=== PATIENT | male | born 1980 | race Hispanic/Latino ===

== ENCOUNTER 2018-07-16 18:16 | Emergency (ER) | payer SELFPAY ==
[~2018-07-16] VITALS: Ht 175.3 cm; Wt 131.5 kg
--- OUTSIDE RECORDS SUMMARY | 2018-07-16 18:19 | XMS REPORT | Clinical Summary ---
Author Author [place] [facility] [place] [facility] Address Unknown Phone Unavailable Care Team Providers Care Business Unit Manager Name Role Phone [facility] PCP Allergies No Known Allergies Medications End Date Status Medication Sig Dispensed Refills Start Date Active ciprofloxacin (CIPRO) 500 Take 500 mg 0 MG tablet by mouth 2 (two) times a day. For 10 days, starting 07/18/17 Active triamterene-hydrochloroth Take 1 tablet 0 iazid (MAXZIDE-25) by mouth 7 37.5-25 mg per tablet every morning. 07/20/2017 Discontinued acetaminophen-codeine Take 1 tablet 0 (TYLENOL WITH CODEINE #3) by mouth 6 300-30 mg per tablet every 4 (four) hours as needed. 07/20/2017 Discontinued blood pressure monitor Please check 1 each 1 (BLOOD PRESSURE KIT) blood 7 kitIndications: Essential pressures hypertension daily and keep a written log. 08/04/2017 sulfamethoxazole-trimetho Take 1 tablet 28 tablet 0 prim (BACTRIM DS) 800-160 by mouth 8 mg per tabletIndications: every 12 Cellulitis of scrotum, (twelve) Abscess of scrotum, hours for 14 Epididymitis, right, days. Scrotal abscess, Borderline diabetes Active Problems Problem Noted Date Epididymitis, right 07/21/2017 Scrotal abscess 07/21/2017 Borderline diabetes 07/21/2017 Leukocytosis 07/21/2017 Cellulitis of scrotum 07/20/2017 Encounters Care Team Description Date Type Specialty Doris Thompson MD Scrotal abscess (Primary Dx) 07/27/2017 Office Visit Urology Hank Teran MD Samuel, Leena L., MD Cellulitis of scrotum (Primary Dx); Abscess of scrotum; Epididymitis, right; Scrotal abscess; Borderline diabetes 07/20/2017 Emergency Emergency Medicine - 07/21/2017 after 07/15/2017 Family History Medical History Relation Name Comments No Known Problems Father Diabetes Maternal Uncle Stroke Maternal Uncle Diabetes Mother Hypertension Mother Other Paternal Fluid in his heart Grandfather Diabetes Paternal Grandmother Relation Name Status Comments Father Maternal Uncle Alive Mother Alive Paternal Grandfather Alive Paternal Grandmother Social History Date Tobacco Use Types Packs/Day Years Used Former Smoker 0.1 2 Smokeless Tobacco: Never Used Alcohol Use Drinks/Week oz/Week Comments Yes socially Sex Assigned at Date Recorded Not on file Industry Job Start Date Occupation Not on file Not on file Not on file Travel End Travel History Travel Start No recent travel history available. Last Filed Vital Signs Time Taken Vital Sign Reading 07/21/2017 11:30 AM [employer] Blood Pressure 120/74 07/21/2017 11:30 AM [employer] RE[employer] Pulse 72 07/21/2017 11:30 AM [employer] REPAIR[employer] Temperature 36.5 C (97.7 F) 07/21/2017 11:30 AM [employer] REPA[employer]ER Respiratory Rate 18 07/21/2017 11:30 AM [employer] REPA[employer]ER Oxygen Saturation 96% - Inhaled Oxygen - Concentration - Weight - 07/20/2017 1:55 PM [employer] REPAIR[employer] Height 175.3 cm (5' 9") - Body Mass Index - Plan of Treatment Health Maintenance Due Date Last Done Comments INFLUENZA VACCINE 02/08/2018 Procedures Comments Procedure Name Priority Date/Time Associated Diagnosis POC URINALYSIS DIPSTICK Routine 07/27/2017 Scrotal abscess 11:15 AM [employer] REPA[employer]ER CHLAMYDIA BY PROBETEC Routine 07/21/2017 9:57 AM [employer] REPAIRER GC BY PROBETEC Routine 07/21/2017 9:57 AM E[employer]IC [employer]YING [employer] REPAIRER ZZESTIMATED GFR Routine 07/21/2017 3:25 AM [employer] REPAIRER HEMOGLOBIN A1C Routine 07/21/2017 3:25 AM [employer] REPAIRER COMPREHENSIVE METABOLIC Routine 07/21/2017 PANEL 3:25 AM [employer] REPA[employer] SYPHILIS TREPONEMAL IGG Routine 07/21/2017 3:25 AM [employer] REPAIRER HIV 1, 2 ANTIBODY Routine 07/21/2017 3:25 AM [employer] REPAIRER LACTIC ACID LEVEL, SEPSIS Timed 07/20/2017 - NOW AND REPEAT 2X EVERY 5:02 PM [employer] REPAIRER 3 HOURS URINALYSIS SCREEN AND STAT 07/20/2017 MICROSCOPY, WITH REFLEX 4:45 PM [employer] REPAIRER TO CULTURE URINE CULTURE STAT 07/20/2017 4:45 PM [employer] REPAIRER ZZESTIMATED GFR STAT 07/20/2017 4:40 PM [employer]YING [employer] REPAIRER LACTIC ACID LEVEL, SEPSIS STAT 07/20/2017 - NOW AND REPEAT 2X EVERY 4:40 PM [employer] REPAIRER 3 HOURS CREATINE KINASE, TOTAL STAT 07/20/2017 (CPK) 4:40 PM [employer]YING [employer] REPAIRER COMPREHENSIVE METABOLIC STAT 07/20/2017 PANEL 4:40 PM [employer]YING [employer] REPAIRER MAGNESIUM LEVEL STAT 07/20/2017 4:40 PM [employer] REPAIRER PARTIAL THROMBOPLASTIN STAT 07/20/2017 TIME (PTT) 4:40 PM E[employer]IC [employer]YING [employer] REPAIRER PROTHROMBIN TIME WITH INR STAT 07/20/2017 4:40 PM [employer] REPAIRER HC COMPLETE BLD COUNT STAT 07/20/2017 W/AUTO DIFF 4:40 PM E[employer]YING [employer] REPAIRER BLOOD CULTURE, AEROBIC & Routine 07/20/2017 ANAEROBIC 4:36 PM [employer]YING [employer] REPAIRER US SCROTAL STAT 07/20/2017 3:05 PM E[employer]IC [employer]YING [employer] REPAIRER after 07/15/2017 Results * POC urinalysis dipstick (07/27/2017 11:15 AM E[employer]YING [employer] REPAIRER) Color urine, POC Yellow Clarity urine, POC Clear Glucose urine, POC Negative Negative Bilirubin urine, POC Negative Negative Ketones urine, POC Negative Negative Specific gravity urine, 1.025 1.005 - 1.030 POC Blood urine, POC Trace (A) Negative pH urine, POC 5.5 5.0, 5.5, 6.0, 6.5, 7.0, 7.5, 8.0, 8.5 Protein urine, POC Negative Negative Urobilinogen urine, POC <2.0 <2.0 Nitrite urine, POC Negative Negative Leukocyte esterase urine, Negative Negative POC Specimen Urine * GC By Probe[employer] (07/21/2017 9:57 AM ELECTRIC [employer]YING [employer] REPAIRER) [facility] DEPARTMENT OF gonorrhoeae. PATHOLOGY AND Comment: GENOMIC MEDICINE Specimen Information Specimen Source: Urine Specimen Site: Midstream Specimen Urine - Midstream Performing Organization Address [facility] Phone Number [facility] [place] [address] PATHOLOGY AND GENOMIC MEDICINE * Chlamydia by ProbeTe (07/21/2017 9:57 AM ELECT[employer]IC [employer]YING [employer] REPAIRER) [facility]lamydia, [facility] DEPARTMENT OF trachomatis. PATHOLOGY AND Comment: GENOMIC MEDICINE Specimen Information Specimen Source: Urine Specimen Site: Midstream Specimen Urine - Midstream Performing Organization Address [facility] [place] [address] PATHOLOGY AND GENOMIC MEDICINE * Syphilis treponemal IgG (07/21/2017 3:25 AM ELECT[employer]IC [employer]YING [employer] REPAIRER) Syphilis treponemal IgG Non-reactiveComment: Non-reactive [facility] DEPARTMENT OF Non-reactive: No serological PATHOLOGY AND evidence of Syphilis infection [facility] Specimen Serum Performing Organization Address [facility] [place] [address] PATHOLOGY AND GENOMIC MEDICINE * Estimated GFR (07/21/2017 3:25 AM ELECT[employer]IC [employer]YING [employer] REPAIRER) Only the most recent of 2 results within the time period is included. GFR Non Af Amer >90 mL/min/1.73 m2 [facility] DEPARTMENT OF PATHOLOGY AND GENOMIC MEDICINE GFR Af Amer >90 mL/min/1.73 m2 [facility] DEPARTMENT OF Comment: PATHOLOGY AND Chronic kidney disease: <60 GENOMIC MEDICINE mL/min/1.73m2 Kidney failure: <15 mL/min/1.73m2 The estimated GFR is calculated from the IDMS-traceable Modification of Diet in Renal Disease Equation. The accuracy of the calculation is poor when the creatinine is normal. Calculated values >90 mL/min/1.73m2 are not reported. This equation has not been validated in children (<18 years), women, the elderly (>70 years), or ethnic groups other than Caucasians and Americans. Specimen Plasma specimen Performing Organization Address City/[facility]/[place] [address] PATHOLOGY AND GENOMIC MEDICINE * HIV 1, 2 antibody (07/21/2017 3:25 AM E[employer]IC [employer]YING [employer] REPAIRER) HIV 1, 2 antibody Non-reactive Non-reactive [facility] DEPARTMENT OF Comment: PATHOLOGY AND Starting from October 07 2015, GENOMIC MEDICINE 4th generation HIV screening and confirmation assays are in use at [facility], consistent with the CDC-recommended algorithm. The screening test detects antibodies to HIV-1, HIV-2 and the p24 antigen. Positive screening results will be automatically reflexed to a HIV-1/HIV-2 differentiation assay. Indeterminant HIV-1 results will be further automatically reflexed to a nucleic acid test for detection of acute infection. Western blot will no longer be performed as a confirmation test. For a quick reference guide on the testing algorithm, please refer to: http://stacks.cdc.gov/view/cdc /94377. Specimen Blood Performing Organization Address [facility] [place] [address] PATHOLOGY AND GENOMIC MEDICINE * Hemoglobin A1c (07/21/2017 3:25 AM E[employer]IC [employer]YING [employer] REPAIRER) Hemoglobin A1C 5.7 (H) 4.0 - 5.6 % [facility] DEPARTMENT OF Comment: PATHOLOGY AND HbA1c cutoffs for diagnosing GENOMIC MEDICINE diabetes: 4.0% - 5.6%=normal 5.7% - 6.4%=increased risk for diabetes (prediabetes) >=6.5%=diabetes Goals for glycemic control (ADA 2016) < 7.0%Target for non adults with diabetes. More or less stringent targets may be appropriate for individual patients. <7.5% Target for Children and adolescents with type 1 diabetes. Specimen Blood Performing Organization Address [facility]/[place] [address] PATHOLOGY AND GENOMIC MEDICINE * Comprehensive metabolic panel (07/21/2017 3:25 AM ELECT[employer]IC [employer]YING [employer] REPAIRER) Only the most recent of 2 results within the time period is included. Sodium 140 135 - 148 mEq/L [facility] DEPARTMENT OF PATHOLOGY AND GENOMIC MEDICINE Potassium 3.9 3.5 - 5.0 mEq/L [facility] DEPARTMENT OF PATHOLOGY AND GENOMIC MEDICINE Chloride 103 98 - 112 mEq/L [facility] DEPARTMENT OF PATHOLOGY AND GENOMIC MEDICINE CO2 26 24 - 31 mEq/L [facility] DEPARTMENT OF PATHOLOGY AND GENOMIC MEDICINE Anion gap 11 7 - 15 mEq/L [facility] DEPARTMENT OF Comment: PATHOLOGY AND Starting from October GENOMIC MEDICINE , anion gap calculation no longer incorporates potassium. Please note the change. BUN 11 6 - 20 mg/dL [facility] DEPARTMENT OF PATHOLOGY AND GENOMIC MEDICINE Creatinine 0.9 0.7 - 1.2 mg/dL [facility] DEPARTMENT OF PATHOLOGY AND GENOMIC MEDICINE Glucose 92 65 - 99 mg/dL [facility] DEPARTMENT OF PATHOLOGY AND GENOMIC MEDICINE Calcium 8.3 8.3 - 10.2 mg/dL [facility] DEPARTMENT OF PATHOLOGY AND GENOMIC MEDICINE Protein 7.2 6.3 - 8.3 g/dL [facility] DEPARTMENT OF Comment: PATHOLOGY AND GENOMIC MEDICINE 4.6-7.0 g/dL 1 week 4.4-7.6 g/dL 7 months-1year 5.1-7.3 g/dL 1-2 years5.6-7 .5 g/dL >3 years6.0-8 .0 g/dL 18-150 6.3-8.3 g/dL Albumin 2.7 (L) 3.5 - 5.0 g/dL [facility] DEPARTMENT OF PATHOLOGY AND GENOMIC MEDICINE A/G ratio 0.6 (L) 0.7 - 3.8 [facility] DEPARTMENT OF PATHOLOGY AND GENOMIC MEDICINE Alkaline phosphatase 92 40 - 129 U/L [facility] DEPARTMENT OF PATHOLOGY AND GENOMIC MEDICINE AST 18 10 - 50 U/L [facility] DEPARTMENT OF PATHOLOGY AND GENOMIC MEDICINE ALT 19 5 - 50 U/L [facility] DEPARTMENT OF PATHOLOGY AND GENOMIC MEDICINE Total bilirubin 0.4 0.0 - 1.2 mg/dL [facility] DEPARTMENT OF PATHOLOGY AND GENOMIC MEDICINE Specimen Plasma specimen Performing Organization Address City/[facility] Phone Number [address] [address] PATHOLOGY AND [employer] MEDICINE * Lactic acid level, SEPSIS - Now and repeat 2x every 3 hours (07/20/2017 5:02 PM E[employer]YING [employer] REPAIRER) Only the most recent of 2 results within the time period is included. Lactic acid 1.3 0.5 - 2.2 mmol/L [facility] DEPARTMENT OF PATHOLOGY AND GENOMIC MEDICINE Specimen Blood Performing Organization Address City/[facility] Phone Number [address] [address] PATHOLOGY AND GENOMIC MEDICINE * Urinalysis screen and microscopy, with reflex to culture (07/20/2017 4:45 PM ELECT[employer]IC [employer]YING [employer] REPAIRER) Specimen site Clean catch [facility] DEPARTMENT OF PATHOLOGY AND GENOMIC MEDICINE Color, UA Yellow [facility] DEPARTMENT OF PATHOLOGY AND GENOMIC MEDICINE Appearance, UA Clear [facility] DEPARTMENT OF PATHOLOGY AND GENOMIC MEDICINE Specific gravity, UA 1.027 1.001 - 1.035 [facility] DEPARTMENT OF PATHOLOGY AND GENOMIC MEDICINE pH, UA 5.0 5.0 - 8.5 [facility] DEPARTMENT OF PATHOLOGY AND GENOMIC MEDICINE Protein, UA Negative Negative [facility] DEPARTMENT OF PATHOLOGY AND GENOMIC MEDICINE Glucose, UA Negative Negative [facility] DEPARTMENT OF PATHOLOGY AND GENOMIC MEDICINE Ketones, UA Negative Negative [facility] DEPARTMENT OF PATHOLOGY AND GENOMIC MEDICINE Bilirubin, UA Negative Negative [facility] DEPARTMENT OF PATHOLOGY AND GENOMIC MEDICINE Blood, UA Negative Negative [facility] DEPARTMENT OF PATHOLOGY AND GENOMIC MEDICINE Nitrite, UA Negative Negative [facility] DEPARTMENT OF PATHOLOGY AND GENOMIC MEDICINE Urobilinogen, UA 4.0 (A) <2.0 [facility] DEPARTMENT OF PATHOLOGY AND GENOMIC MEDICINE Leukocyte esterase, UA Negative Negative [facility] DEPARTMENT OF PATHOLOGY AND GENOMIC MEDICINE Epithelial cells, UA 1 /HPF [facility] DEPARTMENT OF PATHOLOGY AND GENOMIC MEDICINE WBC, UA 2 (H) 0 - 1 /HPF [facility] DEPARTMENT OF PATHOLOGY AND GENOMIC MEDICINE RBC, UA 2 (H) 0 - 1 /HPF [facility] DEPARTMENT OF PATHOLOGY AND GENOMIC MEDICINE Bacteria, UA Few None seen [facility] DEPARTMENT OF PATHOLOGY AND GENOMIC MEDICINE Yeast, UA None seen [facility] DEPARTMENT OF PATHOLOGY AND GENOMIC MEDICINE Yeast with pseudohyphae, None seen [facility] DEPARTMENT OF PATHOLOGY AND GENOMIC MEDICINE Hyaline casts, UA 4 /LPF [facility] DEPARTMENT OF PATHOLOGY AND GENOMIC MEDICINE Specimen Urine Performing Organization Address City/[facility]/[place] [address] PATHOLOGY AND GENOMIC MEDICINE * Urine culture (07/20/2017 4:45 PM ELECTRIC [employer]YING [employer] REPAIRER) Urine culture SEE COMMENTComment: [facility] DEPARTMENT OF Bacteriuria screen negative. PATHOLOGY AND GENOMIC MEDICINE Performing Organization Address City/[facility] Phone Number [place] [phone] PATHOLOGY AND GENOMIC MEDICINE * Partial thromboplastin time, activated (07/20/2017 4:40 PM E[employer]YING [employer] REPAIRER) PTT 33.7 23.0 - 36.0 sec [facility] DEPARTMENT OF Comment: PATHOLOGY AND PTT therapeutic range for GENOMIC MEDICINE unfractionated heparin is 61.0-112.0 seconds which corresponds to Anti-Xa 0.3-0.7 U/ml. Specimen Blood Performing Organization Address City/[facility]/[place] [address] PATHOLOGY AND GENOMIC MEDICINE * Prothrombin time with INR (07/20/2017 4:40 PM ELECT[employer]YING [employer] REPAIRER) Prothrombin time 14.9 12.0 - 15.0 sec [facility] DEPARTMENT OF PATHOLOGY AND GENOMIC MEDICINE INR 1.2 [facility] DEPARTMENT OF Comment: PATHOLOGY AND The International Normalized [facility] Ratio (INR) is a therapeutic monitoring tool for patients who are stable on oral anticoagulant therapy. An INR of 2.0-3.0 is suggested for deep vein thrombosis/pulmonary embolism. Specimen Blood Performing Organization Address [facility] Phone Number [address] [address] PATHOLOGY AND [employer] MEDICINE * CBC with platelet and differential (07/20/2017 4:40 PM ELECT[employer]IC [employer]YING [employer] REPAIRER) WBC 12.85 (H) 4.50 - 11.00 k/uL [facility] DEPARTMENT OF PATHOLOGY AND GENOMIC MEDICINE RBC 5.26 4.40 - 6.00 m/uL [facility] DEPARTMENT OF PATHOLOGY AND GENOMIC MEDICINE HGB 14.4 14.0 - 18.0 g/dL [facility] DEPARTMENT OF PATHOLOGY AND GENOMIC MEDICINE HCT 44.4 41.0 - 51.0 % [facility] DEPARTMENT OF PATHOLOGY AND GENOMIC MEDICINE MCV 84.4 82.0 - 100.0 fL [facility] DEPARTMENT OF PATHOLOGY AND GENOMIC MEDICINE MCH 27.4 27.0 - 34.0 pg [facility] DEPARTMENT OF PATHOLOGY AND GENOMIC MEDICINE MCHC 32.4 31.0 - 37.0 g/dL [facility] DEPARTMENT OF PATHOLOGY AND GENOMIC MEDICINE RDW - SD 40.4 37.0 - 55.0 fL [facility] DEPARTMENT OF PATHOLOGY AND GENOMIC MEDICINE MPV 11.2 8.8 - 13.2 fL [facility] DEPARTMENT OF PATHOLOGY AND GENOMIC MEDICINE Platelet count 236 150 - 400 k/uL [facility] DEPARTMENT OF PATHOLOGY AND GENOMIC MEDICINE Nucleated RBC 0.00 /100 WBC [facility] DEPARTMENT OF PATHOLOGY AND GENOMIC MEDICINE Neutrophils 80.2 (H) 39.0 - 69.0 % [facility] DEPARTMENT OF PATHOLOGY AND GENOMIC MEDICINE Lymphocytes 12.4 (L) 25.0 - 45.0 % [facility] DEPARTMENT OF PATHOLOGY AND GENOMIC MEDICINE Monocytes 4.3 0.0 - 10.0 % [facility] DEPARTMENT OF PATHOLOGY AND GENOMIC MEDICINE Eosinophils 1.7 0.0 - 5.0 % [facility] DEPARTMENT OF PATHOLOGY AND GENOMIC MEDICINE Basophils 0.4 0.0 - 1.0 % [facility] DEPARTMENT OF PATHOLOGY AND GENOMIC MEDICINE Immature granulocytes 1.0Comment: "Immature 0.0 - 1.0 % [facility] DEPARTMENT OF granulocytes" (promyelocytes, PATHOLOGY AND myelocytes, metamyelocytes) GENOMIC MEDICINE Specimen Blood Performing Organization Address City/[facility] Phone Number [facility] [place] [address] PATHOLOGY AND GENOMIC MEDICINE * Magnesium level (07/20/2017 4:40 PM ELECTRIC [employer]YING [employer] REPAIRER) Magnesium 2.1 1.6 - 2.6 mg/dL [facility] DEPARTMENT OF PATHOLOGY AND GENOMIC MEDICINE Specimen Plasma specimen Performing Organization Address [facility] Phone Number [facility] [place] [address] PATHOLOGY AND GENOMIC MEDICINE * Creatine kinase, total (CPK) (07/20/2017 4:40 PM ELECTRIC [employer]YING [employer] REPAIRER) Creatine kinase 202 39 - 308 U/L [facility] DEPARTMENT OF PATHOLOGY AND GENOMIC MEDICINE Specimen Plasma specimen Performing Organization Address [facility] Phone Number [facility] [place] [address] PATHOLOGY AND GENOMIC MEDICINE * Blood culture, aerobic & anaerobic (07/20/2017 4:36 PM ELECTRIC [employer]YING [employer] REPAIRER) Blood culture isolate No growth after 5 days of [facility] DEPARTMENT OF incubation. PATHOLOGY AND Comment: GENOMIC MEDICINE Specimen Information Specimen Source: Blood Specimen Site: Antecubital, left Specimen Blood - Antecubital, left Performing Organization Address City/[facility] Phone Number [facility] [place] [address] PATHOLOGY AND GENOMIC MEDICINE * US Scrotal (07/20/2017 3:05 PM ELECTRIC [employer]YING [employer] REPAIRER) Narrative Performed At EXAMINATION:US SCROTAL [facility] CLINICAL HISTORY:testicular swelling COMPARISON:None. TECHNIQUE:Sonographic evaluation of the scrotum. Real-time B mode grayscale, Doppler spectral analysis and Doppler color flow imaging was used to assess testicular vasculature. IMPRESSION: Diffuse scrotal wall edema, slightly more pronounced on the left, where there is an intrascrotal wall complex fluid collection measuring 5.4 x 2.0 x 5.0 cm, indicative of a scrotal wall abscess. Another scrotal wall abscess on the left measuring 4.7 cm in long axis. Upper normal reactive left inguinal lymph node. Trace reactive simple appearing hydroceles bilaterally. No varicocele on either side. Right epididymis heterogeneous in echotexture, enlarged, and slightly hyperemic, indicating mild or subacute epididymitis. The left epididymis is well-maintained. Testicles measure 4.0 x 2.5 x 2.3 cm on the right and 3.7 x 2.5 x 3.3 cm on the left. Parenchyma is homogeneous in echotexture and there is perfusion bilaterally with no evidence of orchitis, torsion, or intratesticular abscess. SUMMARY: 1.Scrotal wall cellulitis, and a couple of abscesses in the left hemiscrotal wall. 2.No pyocele or intratesticular abscess. 3.Mild right epididymitis. [facility]-[id number] Procedure Note Hm Interface, Radiology Results Incoming - 07/20/2017 3:52 PM ELECTRIC [employer]YING [employer] REPAIRER EXAMINATION: US SCROTAL CLINICAL HISTORY: testicular swelling COMPARISON: None. TECHNIQUE: Sonographic evaluation of the scrotum. Real-time B mode grayscale, Doppler spectral analysis and Doppler color flow imaging was used to assess testicular vasculature. IMPRESSION: Diffuse scrotal wall edema, slightly more pronounced on the left, where there is an intrascrotal wall complex fluid collection measuring 5.4 x 2.0 x 5.0 cm, indicative of a scrotal wall abscess. Another scrotal wall abscess on the left measuring 4.7 cm in long axis. Upper normal reactive left inguinal lymph node. Trace reactive simple appearing hydroceles bilaterally. No varicocele on either side. Right epididymis heterogeneous in echotexture, enlarged, and slightly hyperemic, indicating mild or subacute epididymitis. The left epididymis is well-maintained. Testicles measure 4.0 x 2.5 x 2.3 cm on the right and 3.7 x 2.5 x 3.3 cm on the left. Parenchyma is homogeneous in echotexture and there is perfusion bilaterally with no evidence of orchitis, torsion, or intratesticular abscess. SUMMARY: 1. Scrotal wall cellulitis, and a couple of abscesses in the left hemiscrotal wall. 2. No pyocele or intratesticular abscess. 3. Mild right epididymitis. [facility]-[id number] Performing Organization Address City/State/Zipcode Phone Number [facility] [address] [place] [address] after 07/15/2017 Advance Directives Patient has advance care planning documents on file. For more information, tonny gaytan contact: Sarabjit Lopez [address] [place] [address]
[2018-07-16] MEDS ORDERED: SODIUM CHLORIDE 0.9% 1000ML 1,000 ML IV STA (18:48)
[2018-07-16 21:46] LABS: CLARITY,URINE HAZY (CLEAR); COLOR,URINE YELLOW (YELLOW); KETONES,URINE TRACE (NEGATIVE); LEUKOCYTE ESTERASE ,URINE NEGATIVE (NEGATIVE); NITRITE,URINE NEGATIVE (NEGATIVE); PROTEIN,URINE DIPSTICK NEGATIVE (NEGATIVE)
[2018-07-16 21:47] LABS: BILIRUBIN,URINE NEGATIVE (NEGATIVE); URINE UROBILINOGEN 0.2 mg/dL (0.2 - 1)
[2018-07-16 22:12] LABS: BACTERIA,URINE RARE /HPF; EPITHELIAL CELLS,URINE RARE /LPF; RBC,URINE 0-5 /HPF (0-5); WBC,URINE (MAN) 0-5 /HPF (0-5)
[2018-07-16 22:13] LABS: MUCUS,URINE MODERATE (RARE)
[2018-07-16 22:33] LABS: BASOPHILS % 0.2 % (0.0-1.0); EOSINOPHILS # (AUTO) 0.2 (0.0-0.4); EOSINOPHILS % 1.4 % (0.0-6.0); HEMOGLOBIN 14.5 g/dL (14.0-18.0); LYMPHOCYTES # (AUTO) 1.9 (1.0-3.2); LYMPHOCYTES % 14.1 % (18.0-39.1); MEAN CORPUSCULAR HEMOGLOBIN 27.9 pg (28-32); MEAN CORPUSCULAR VOLUME 84.6 fL (81-99); MONOCYTES # (AUTO) 0.6 (0.2-0.8); MONOCYTES % 4.5 % (4.4-11.3); NEUTROPHILS # (AUTO) 10.5 (2.1-6.9); NEUTROPHILS % 79.5 % (38.7-80.0); PLATELET COUNT 212 x10e3/uL (140-360); RED CELL DISTRIBUTION WIDTH 14.1 % (11.7-14.4)
[2018-07-16 22:47] LABS: ALANINE AMINOTRANSFERASE 37 IU/L (0-55); ALBUMIN 3.6 g/dL (3.5-5.0); ALBUMIN/GLOBULIN RATIO 0.8 (0.8-2.0); ALKALINE PHOSPHATASE 115 IU/L (40-150); ANION GAP 12.7 mmol/L (8-16); BLOOD UREA NITROGEN 12 mg/dL (7-26); BUN/CREATININE RATIO 13 (6-25); CALCIUM 9.3 mg/dL (8.4-10.2); CARBON DIOXIDE 27 mmol/L (22-29); CHLORIDE 101 mmol/L (98-107); CREATININE, SERUM 0.95 mg/dL (0.72-1.25); EST GLOMERULAR FILTRATION RATE > 60 ML/MIN (60-); GLUCOSE 90 mg/dL (74-118); POTASSIUM 3.7 mmol/L (3.5-5.1); SODIUM 137 mmol/L (136-145)
--- NOTE | 2018-07-16 22:57 | Diagnostic Imaging Report ---
EXAM: Scrotal Ultrasound with Duplex INDICATION: Swollen scrotum, concern for left sided orchitis. COMPARISON: None TECHNIQUE: Transverse and longitudinal images were obtained of the scrotum with grayscale imaging, color Doppler and spectral waveform analysis. FINDINGS: Right testis: Size: 3.4 x 1.9 x 3.1 cm, normal in size. Echogenicity: Normal Mass/Cysts: None Left testis: Size: 2.9 x 2.8 x 3.7 cm, normal in size. Echogenicity: Normal Mass/Cysts: None Epididymis: Appearance: Normal in size without increased vascularity. Mass/Cysts: Superior to the right testicle, a 0.2 x 0.3 x 0.3 cm structure likely represents an epididymal appendage versus scrotal anastacia. Extratesticular: Masses: None Hydrocele: None Varicocele: None Doppler: Normal arterial flow to both testes and symmetrical flow on color Doppler evaluation is seen. No evidence of testicular torsion. Thickening of the scrotal sac bilaterally with a collection of fluid along the left inferolateral sac with some linear internal echoes measuring at least 4.1 x 1.6 cm. No increased peripheral vascularity or increased vascularity in the adjacent soft tissues. IMPRESSION: 1. No evidence of testicular torsion or epididymoorchitis. 2. Scrotal wall thickening with a collection of fluid in the inferolateral left scrotal sac which may represent collecting edema in the absence of vascularity to suggest abscess or cellulitis. Clinical correlation recommended. Signed by: DR. Steffen Murray MD on 07/16/2018 10:53 PM
[2018-07-16] MEDS ORDERED: CLINDAMYCIN PHOS 900MG/ 50ML 50 ML IV STA (23:25)
[2018-07-16] MEDS ORDERED: HYDROCODONE/APAP 10MG-325MG TAB PO ONE (23:30)
[2018-07-17 00:41] VITALS: BP 144/98
--- NOTE | 2018-07-17 07:31 | Diagnostic Imaging Report ---
PROCEDURE:TESTICULAR ULTRASOUND COMPARISON:[facility], [facility], 07/16/2018, 21:07. INDICATIONS:Swollen scrotum TECHNIQUE: Apple-scale and color Doppler images of the testicles and scrotal contents were obtained. Duplex imaging with spectral waveform analysis was performed of the testicular arteries and veins. FINDINGS: Please see the full report associated with accession #[id number] for full details of this study. CONCLUSION: 1. No evidence of testicular torsion or epididymoorchitis. 2. Scrotal wall thickening with a collection of fluid in the inferolateral left scrotal sac which may represent collecting edema in the absence of vascularity to suggest abscess or cellulitis. 3. Clinical correlation recommended. Diego Bueno D.O. Dictated by: Diego Bueno D.O. on 07/17/2018 at 7:41 Electronically approved by: Deigo Bueno D.O. on 07/17/2018 at 7:41
== END 2018-07-17 00:52 | disposition home or self-care (01) ==
LOC: ER 18:16
DX: N50.812 Left testicular pain (principal); N45.2 Orchitis
CPT/HCPCS: 36415; 76870; 80053; 81001; 85025; 87040; 87086; 93976; 99284